=== PATIENT | female | born 1955 | race Caucasian/White ===

== ENCOUNTER 2016-05-30 15:00 | Inpatient (IN) | payer MEDICARE, OTHER ==
[~2016-05-30] VITALS: Ht 167.6 cm; Wt 75.5 kg
--- NOTE | ~2016-05-30 | ECHO ---
Transthoracic Echocardiography Report (TTE) Demographics Patient Name KODI GREEN Date of Study 05/31/2016 Patient Number [id number] Visit Number [id number] Date of 1955 Room Number G6204 Gender Female Number Age 61 year(s) Referring Silk Examiner Gold HARDENT, RDCS Physician Angelique Physician Interpreting Amilcar Bermudez MD Degreasing Solution Mixer Physician Supervising Ordering Doug Don MD, MD/MLP Physician Nurse Stress Systems Development Manager Conclusions Contractility Score Summary Normal Left Ventricular contractility was noted. Summary Normal LV/RV size and systolic function. The estimated left ventricular ejection fraction is 55-60%. Mild concentric left ventricular hypertrophy. Mild LA enlargement. Diastolic assessment reveals Grade II pseudonormal diastolic function . No significant valvular abnormalities. No evidence of pericardial effusion. Procedure Type of Study TTE procedure:2D Echocardiogram, M-Mode, Doppler , Color Doppler. Procedure Date Date: 05/31/2016 Start: 07:48 AM Study Location: Inpatient Portable Technical Quality: Adequate visualization Indications:Hypotension and Coronary artery disease. Appropriate Use Criteria: 9 Patient Status: Routine HR: 83 bpm BP: 90/50 mmHg Allergies - Codiene. - Penicillin. M-Mode/2D Measurements LV Diastolic Dimension: 4.34 cm LV Systolic Dimension: 2.81 cm LV Septum Diastolic: 0.89 cm LV PW Diastolic: 1.05 cm AO Root Dimension: 2.5 cm Cardiac Output: 6.31 l/min AV Cusp Separation: 1.7 cm RV Diastolic Dimension: 2.61 cm LA volume: 29 ml LVOT: 2 cm RV Base: 2.18 cm LVOT VTI: 24.2 cm RV Mid: 2.1 cm LV Stroke volume: 75.99 ml TAPSE: 2.5 cm TDI-S': 19 cm/s Doppler Measurements AV Peak Velocity: 1.65 m/s MV Peak E-Wave: 1.27 m/s AV Peak Gradient: 10.89 mmHg MV Peak A-Wave: 1.14 m/s AV Mean Gradient: 6 mmHg MV E/A Ratio: 1.11 LVOT Peak Velocity: 1.1 m/s MV P1/2t: 68 msec TR Gradient:22.09 mmHg PV Peak Velocity: 1.08 m/s Estimated RAP:3 mmHg PV Peak Gradient: 4.67 mmHg Estimated RVSP: 25 mmHg Estimated PASP: 25.09 mmHg E' Septal Velocity: 0.08 m/s A' Septal Velocity: 0.13 m/s E' Lateral Velocity: 0.16 m/s A' Lateral Velocity: 0.09 m/s Findings Left Ventricle Mild concentric left ventricular hypertrophy. Diastolic assessment reveals Grade II pseudonormal diastolic function . Abnormal septal motion. Right Ventricle Normal right ventricle structure and function. Left Atrium Mild LA enlargement. Right Atrium Normal right atrial size. IVC measures 1.8 cm with inspiratory collapse. Mitral Valve Trivial mitral regurgitation by color Doppler. Aortic Valve Normal aortic valve structure and function. Tricuspid Valve Trivial tricuspid regurgitation by color Doppler. Pulmonic Valve The pulmonic valve is not well visualized. Pericardial Effusion No evidence of pericardial effusion. Pleural Effusion No evidence of pleural effusion. Contractility Score LV regional wall motion:(0-Non visualized 1-Normal 2-Hypokinesis 3-Akinesis 4-Dyskinesis 5-Aneurysm) Signature dtt: MALDONADO CROW dtd: 05/31/16 0748 Physician Self Edit
--- NOTE | ~2016-05-30 | CON ---
PATIENT'S NAME: KODI GREEN [facility] AGE: 61 Y [address] ROOM: [place] [address] LOCATION: GICU ADMIT DATE: 05/30/2016 Consultation DISCHARGE DATE: FAMILY PHYSICIAN: KENYON BAUM ATTENDING PHYSICIAN: CAROLANN VAUGHN V DATE OF CONSULTATION: 06/01/2016 REFERRING PHYSICIAN: Andreia Tapia MD REASON FOR REFERRAL: Hypoxemia. HISTORY OF PRESENT ILLNESS: The patient is a 61-year-old woman with a host of chronic medical problems. She is dependent on opioids for chronic pain. She was brought to an outside facility with mental status changes, hypotension, and evidence of acute kidney injury. She was found to have an excessive number of [id number] pain patches on. Ultimately, she was transferred here. Over the course of the last 24 hours, she has had increasing O2 requirements and a chest radiograph demonstrating dense bilateral infiltrates. She is a cigarette smoker. PAST MEDICAL HISTORY: Please refer to the admission history and physical exam. FAMILY HISTORY: Unobtainable due to her lethargic state. SOCIAL HISTORY: Unobtainable due to her lethargic state. REVIEW OF SYSTEMS: Unobtainable due to her lethargic state. PHYSICAL EXAMINATION: GENERAL: Lethargic. She is on high flow oxygen. Otherwise unremarkable. LUNGS: With diffuse rhonchi and crackles. Diminished breath sounds in general. HEART: Distant. Regular. ABDOMEN: Nontender. EXTREMITIES: Trace of edema bilaterally. ASSESSMENT: Probable pneumonia secondary to aspiration. She may be developing diffuse alveolar damage and an acute respiratory distress syndrome picture as well. PATIENT'S NAME: KODI GREEN [facility] AGE: 61 Y [address] ROOM: [address] [address] LOCATION: GICU ADMIT DATE: 05/30/2016 Consultation DISCHARGE DATE: FAMILY PHYSICIAN: KENYON BAUM ATTENDING PHYSICIAN: CAROLANN VAUGHN V PLAN: Agree with current regimen with broad-spectrum antibiotic coverage, bronchodilators, and support with oxygen. If refractory hypoxemia occurs or hypercapnia, she will need to be intubated. We will follow along with you. MD RC BREWER/katherin /[id number] d: 06/02/16816 t: 06/03/16 1303, CONSULTATION REPORT
--- NOTE | ~2016-05-30 | DS ---
PATIENT'S NAME: KODI GREEN [facility] AGE: 61 Y [address] ROOM: [address] [place], [place] [address] LOCATION: GPCU ADMIT DATE: 05/30/2016 Discharge Summary DISCHARGE DATE: 06/05/2016 FAMILY PHYSICIAN: Vicki Mcneill ATTENDING PHYSICIAN: Lanre Camacho V PRINCIPAL DIAGNOSIS: 1. Acute hypoxic respiratory failure. 2. Community-acquired pneumonia. 3. Heart failure with preserved ejection fraction, acute exacerbation. 4. Coronary artery disease with multiple stents. 5. Chronic opioid dependence. 6. Degenerative joint disease. 7. Anxiety/depression. 8. Fibromyalgia. HOSPITAL COURSE: For details, please refer to H and P, but briefly, she is a 61-year-old lady with a past medical history of coronary artery disease; history of chronic pain, on generous doses of opioids; and fibromyalgia; was admitted to the ER in [place] and was transferred here subsequently for higher medical care. Initially, she was found to be hypotensive with altered mental status. It was discovered that she had been dealing with significant pain and used 8 Salonpas patches at the same time. She was initially volume resuscitated and started on vasopressors. We found out that she also had pneumonia and was diagnosed with septic shock. She was started on broad- spectrum antibiotics initially, but no organism was identified. She was deescalated and was taken off the vasopressors subsequently. Later during the course of the hospitalization, she developed pulmonary edema. There was some concern of ARDS, but she was diuresed and her pulmonary edema cleared over the next 2 days, making diagnosis of ARDS unlikely. On the day of the discharge, she had improved remarkably clinically as well as radiologically. She was discharged home with Levaquin for 3 more days. Of note, she has not seen her primary substance abuse counselor, Dr. Dodd, in many years. An echocardiography was done in the hospital which did show normal ejection fraction, but grade 2 diastolic dysfunction. She needs to follow up with Dr. Dodd for the management of her heart failure with preserved ejection fraction. She was also taking high dose of MS Contin 60 mg 3 times daily which was cut down to 30 mg twice daily in this hospitalization. We are going to send her home on a small dose of Lasix which is 20 mg and some potassium until she sees her primary care physician as well as Dr. Dodd. DISCHARGE MEDICATIONS: Today include, 1. Tylenol 1 g p.o. 3 times daily for pain p.r.n. 2. Aspirin 81 mg p.o. daily. PATIENT'S NAME: KODI GREEN [facility] AGE: 61 Y [address] ROOM: [place] [address] [facility] ADMIT DATE: 05/30/2016 Discharge Summary DISCHARGE DATE: 06/05/2016 FAMILY PHYSICIAN: Vicki Mcneill ATTENDING PHYSICIAN: Lanre Camacho V 3. Docusate 100 mg p.o. twice daily. 4. Lasix 20 mg p.o. every day for 7 days. 5. Morphine sulfate 30 mg p.o. 3 times daily. 6. Ranolazine 500 mg p.o. twice daily. 7. Ramipril 2.5 mg p.o. every morning. 8. Clonidine 0.1 mg p.o. twice daily p.r.n. 9. Mirtazapine 7.5 mg p.o. every night at bedtime for insomnia. 10. Progesterone 400 mg p.o. every night at bedtime. 11. Ondansetron 8 mg p.o. twice daily p.r.n. 12. Salonpas patch 1 patch every 8 hours for pain. 13. Nitroglycerin 0.4 mg sublingual for chest pain q.5 minutes. If chest pain does not resolve, contact the ER or call 911. 14. Levofloxacin 750 mg p.o. once daily three tablets. 15. Lasix 20 mg p.o. daily for 7 days. 16. KCl 10 mEq p.o. once daily 7 tablets. HEMODYNAMICS ON DISCHARGE: Stable. ACTIVITY: As tolerated. DIET: Low-sodium diet. I spent 40 minutes in discharge planning of this patient. MD PRAITMA AWAN/katherin /[id number] d: 06/06/16 0325 t: 06/07/16 1212, DISCHARGE SUMMARY
--- NOTE | ~2016-05-30 | HP ---
PATIENT'S NAME: KODI GREEN [facility] AGE: 61 Y [address] ROOM: [address] [place], [place] [address] LOCATION: GICU ADMIT DATE: 05/30/2016 History & Physical DISCHARGE DATE: FAMILY PHYSICIAN: PHYSICIAN, UNKNOWN ATTENDING PHYSICIAN: CAROLANN VAUGHN V DATE OF SERVICE: CHIEF COMPLAINT: Fell out of bed and was transferred for higher level of care. HISTORY OF PRESENT ILLNESS: The patient is a 61-year-old female with a past medical history most significant for coronary artery disease, status post multiple stents as well as chronic opioid dependency. The patient was brought to the ER in [place] earlier today. As reported to me by the provider there as well as by the patient and as extracted from the accompanying transfer chart, she has been weaker and has been having decreased oral intake. At the outside facility, the patient was hypotensive with pressures in the systolic 60s to 70s. She was also found to have acute kidney injury with a creatinine of 3.8. Upon further discussion with the patient, it turns out that she has been dealing with significant pain and has used 8 Salonpas patches at the same time, though we are not sure exactly what the active ingredient of those was. The provider in the outside facility suspect that was the methyl salicylate ones. Of note, the patient was currently being tapered off her MS Contin regimen and she is currently taking 60 mg of MS Contin 3 times a day. The patient also endorses left-sided chest pain radiation up to her neck and left arm though she assures me that this is not the kind of chest pain that she has when she has had a heart attack in the past. She denies any dyspnea, but does admit to an episode of palpitations. REVIEW OF SYSTEMS: All systems have been reviewed and are negative aside from pertinent positives mentioned above. PAST MEDICAL HISTORY: As extracted from the accompanying documentation as well as our records as well as some supplementation by the patient is: 1. Coronary artery disease, status post cardiac stenting in 2015 and 2013. 2. Chronic pain. 3. Tobaccoism. PATIENT'S NAME: KODI GREEN [facility] AGE: 61 Y [address] ROOM: [address] [place], [place] [address] LOCATION: GICU ADMIT DATE: 05/30/2016 History & Physical DISCHARGE DATE: FAMILY PHYSICIAN: PHYSICIAN, UNKNOWN ATTENDING PHYSICIAN: CAROLANN VAUGHN V 4. Anxiety. 5. Distant history of DVT. 6. Fibromyalgia. 7. GERD. 8. Hiatal hernia. 9. Chronic hypomagnesemia. 10. Degenerative disk disease. 11. Migraines. 12. Peptic ulcer disease. PAST SURGICAL HISTORY: Significant for appendectomy, bladder repair, cholecystectomy, hysterectomy, inguinal hernia repair, lumpectomy, and multiple spinal surgeries. CURRENT MEDICATIONS: 1. Progesterone. 2. Lorazepam 1 as needed. 3. Clonidine 0.1 twice a day as needed. 4. Aspirin 81. 5. Morphine sulfate 60 3 times a day. 6. Nitroglycerin as needed. SOCIAL HISTORY: Significant for longstanding and ongoing tobacco use currently at half-a-pack overall estimated to be around 40-pack years. The patient denies any other toxic habits. FAMILY HISTORY: Reviewed and is noncontributory due to known underlying medical conditions. PHYSICAL EXAMINATION: VITAL SIGNS: On dopamine administered to her en route, her heart rate was in the high 90s and blood pressure was 99/50; however, upon being taken off the dopamine while being transferred to the ICU bed, the blood pressure dropped into 65/40 with heart rate in the 80s, saturating 96% on 2 L nasal cannula, respirations are 10, and temperature is 98.5. GENERAL: Appears as a well-developed, well-nourished, middle-aged female, quite lethargic, but easily arousable, oriented, and appropriate. NEUROLOGIC: Gross neurological exam shows no focal deficits. EYES: Exam shows pupils approximately 3-mm and reactive. LYMPHATIC: Exam shows no cervical lymphadenopathy. ENDOCRINE: Exam shows no thyromegaly. ENT: Exam reveals dry mucous membranes. LUNGS: Exam reveals no crackles or rales bilaterally. GI: Abdomen is obese, soft, nondistended. Normoactive bowel sounds. PATIENT'S NAME: KODI GREEN [facility] AGE: 61 Y [address] ROOM: [address] [place] [id number] LOCATION: [facility] ADMIT DATE: 05/30/2016 History & Physical DISCHARGE DATE: FAMILY PHYSICIAN: PHYSICIAN, UNKNOWN ATTENDING PHYSICIAN: CAROLANN VAUGHN V : Exam reveals no costovertebral angle tenderness. VASCULAR: Exam reveals 2+ pedal pulses and slightly diminished capillary refill bilaterally. SKIN: Warm and dry. MUSCULOSKELETAL: Exam shows no muscle or joint abnormalities. PSYCHIATRIC: Exam reveals considerably depressed cognition and mood as well as affect, but the patient is appropriate. LABORATORY DATA: Studies from outside facility significant for a chest x-ray, which appears unremarkable, an EKG which shows a rather old anteroseptal infarct with no acute ST-segment or T-wave abnormalities, negative set of cardiac enzymes, a white count of 7, creatinine of 3.8, up from baseline of 9, potassium is 4.9. ASSESSMENT AND PLAN: This is a 61-year-old critically ill female admitted with: 1. Hypotension. This is likely related to dehydration as well as overmedication. We will continue to aggressively hydrate the patient and monitor her urine output. I will continue her on dopamine to support her circulation. At this point, there is no clear source for infection, but we will draw blood cultures, and treat appropriately. 2. History of coronary artery disease. We will cycle her cardiac enzymes and monitor her on telemetry. Given that she is hypotensive, we will get an echocardiogram to rule out a cardiac source for her hypotension. 3. Chronic opioid dependence. We will try and minimize the amount of opioids that she gets. 4. Acute kidney injury. This is again likely related to hypotension though we will get a urinalysis and renal ultrasound and track the patient's renal function with hydration and improved blood pressures. We will consider a Nephrology consult. 5. Deep venous thrombosis prophylaxis will be pharmacologic as the patient is a high-risk for developing a deep vein thrombosis. Additional management will depend on clinical course. Total critical care time dedicated to the care of this patient not counting any procedures is 60 minutes. MD DACIA BOND/katherin /[id number] D: 339 T: 905 HISTORY & PHYSICAL
[~2016-05-30 15:00] MED LIST: ALTACE2.5 MG PO; ASPIRIN LO-DOSE81 MG PO; ASPIRIN325 MG PO; ATARAX25 MG PO; EFFEXOR XR150 MG PO; LIPITOR40 MG PO; LIPITOR80 MG PO; LOPRESSOR25 MG PO; MS CONTIN60 MG PO; NEURONTIN800 MG PO; NICODERM (HABIT14 MG TOP; VASOTEC2.5 MG PO
[2016-05-30 17:22] LABS: BICARBONATE 14.3 mmol/L (18.0-23.0); LACTATE 0.7 mEq/L (0.50-1.60); PCO2 42 mmHg (35-45); PO2 88 mmHg (80-90)
[2016-05-30 17:25] LABS: BLOOD URINE 25 /UL (NEGATIVE); COLOR URINE YELLOW (YELLOW); GLUCOSE URINE NEGATIVE (NEGATIVE); KETONE URINE 5 mg/dL (NEGATIVE); LEUKOCYTES URINE 25 /UL (NEGATIVE); NITRITE URINE NEGATIVE (NEGATIVE); PROTEIN URINE 30 mg/dL (NEGATIVE); SPEC GRAVITY URINE 1.015 (1.003-1.035); TURBIDITY URINE CLEAR (CLEAR); UROBILINOGEN URINE NORMAL (NORMAL)
[2016-05-30 17:44] LABS: BARBITURATE NEGATIVE (NEGATIVE); COCAINE NEGATIVE (NEGATIVE)
[2016-05-30 17:45] LABS: AMPHETAMINE NEGATIVE (NEGATIVE); OPIATES POSITIVE (NEGATIVE)
[2016-05-30 17:46] LABS: AMORPHOUS URINE 2+ (NEGATIVE); BACTERIA URINE MODERATE (NEGATIVE); RBC URINE RARE #/HPF (NEGATIVE); WBC URINE 0-2 #/HPF (NEGATIVE)
[2016-05-30 18:01] LABS: HEMATOCRIT 34.7 % (33.0-46.0); MCH 32.8 pg (27.0-34.0); MCHC 31.7 gm/dL (32.0-36.5); MCV 103.6 fl (83.0-98.0); MPV 11.7 fl (9.4-12.4); PLATELET COUNT 100 K/uL (150-450); RBC 3.35 M/uL (3.50-5.50); RDW-CV 13.6 % (11.9-14.6); WBC 5.4 K/uL (4.0-11.0)
[2016-05-30 18:11] LABS: PROTIME 10.7 SECONDS (9.6-11.1); PTT 24 SECONDS (25-32)
[2016-05-30 18:23] LABS: ALBUMIN 3.1 gm/dL (3.5-5.0); ALK PHOS 91 IU/L (33-138); ALT 20 IU/L (12-78); AST 26 IU/L (10-40); BLOOD UREA NITROGEN 50 mg/dL (6-24); CHLORIDE 105 mMol/L (96-110); CPK 350 IU/L (21-215); CREATININE 2.8 mg/dL (0.5-1.1); ESTIMATED GFR (MDRD EQUATION) 17; MAGNESIUM 1.8 mg/dL (1.3-2.6); PHOSPHORUS 4.8 mg/dL (2.5-4.9); POTASSIUM 4.1 mMol/L (3.7-5.1); SODIUM 136 mMol/L (135-145); TOTAL BILIRUBIN 0.9 mg/dL (0.0-1.5); TOTAL PROTEIN 6.2 g/dL (6.0-8.4)
[2016-05-30 18:29] LABS: ABSOLUTE NEUTROPHIL CT (ANC) 4.1 K/uL (1.8-7.8); BANDED NEUTROPHIL # 3.6 K/uL (0.0-0.1); BANDED NEUTROPHILS % 66 %; LYMPHOCYTE # 0.8 K/uL (0.8-4.0); LYMPHOCYTE % 14 %; MONOCYTE # 0.5 K/uL (0.0-1.0); SEGMENTED NEUTROPHIL # 0.5 K/uL (1.8-7.8); SEGMENTED NEUTROPHIL % 10 %
[2016-05-30 18:30] LABS: ANION GAP 19.1 (10.0-19.0); CALCIUM 7.3 mg/dL (8.5-10.5); CO2 16 mMol/L (22-32)
[2016-05-30] MEDS ORDERED: RANEXA ER500 MG PO (18:49)
[2016-05-30] MEDS ORDERED: CLONIDINE HCL0.1 MG PO (18:50)
[2016-05-30] MEDS ORDERED: PROGESTERONE200 MG PO (18:52)
[2016-05-30] MEDS ORDERED: ONDANSETRON ODT8 MG PO (18:52)
[2016-05-30] MEDS ORDERED: MIRTAZAPINE7.5 MG PO (18:52)
[2016-05-30] MEDS ORDERED: SALONPAS PATCH1 EAC1 TRANS (18:53)
[2016-05-30] MEDS ORDERED: NITROSTAT0.4 MG SL (18:54)
[2016-05-30 19:12] LABS: BICARBONATE 14.5 mmol/L (18.0-23.0); PCO2 37 mmHg (35-45); PO2 113 mmHg (80-90)
[2016-05-31 00:06] LABS: BICARBONATE 15.1 mmol/L (18.0-23.0); PCO2 36 mmHg (35-45)
[2016-05-31 00:07] LABS: PO2 88 mmHg (80-90)
[2016-05-31 05:26] LABS: ALBUMIN 2.6 gm/dL (3.5-5.0); CREATININE 1.7 mg/dL (0.5-1.1); POTASSIUM 3.7 mMol/L (3.7-5.1)
[2016-05-31 05:28] LABS: ANION GAP 15.7 (10.0-19.0); CALCIUM 7.3 mg/dL (8.5-10.5); TOTAL BILIRUBIN 0.6 mg/dL (0.0-1.5)
--- NOTE | 2016-05-31 05:51 | NUR ---
Significant Event: NARCAN GIVEN X1 PER MD ORDER, PATIENT MORE ALERT AND ABLE TO ANSWER ORIENTATION QUESTIONS. HAS SOME CONFUSION BUT REORIENTS EASILY. TEMP MAX 100.8, STARTED ON LEVAQUIN AND ZYVOX IN ADDITION TO ZOSYN. NO TYLENOL PRN GIVEN. CONTINUES ON LEVOPHED GTT TITRATING FOR MAP GOAL >65. CONTINUES ON BIPAP 10/5 30% FIO2. OCCASSIONAL SPONTANEOUS NONPRODUCTIVE COUGH. MARTEL WITH GOOD UOP. INCONTINENT OF STOOL X2. PIV X2. Follow up: ECHO AND ULTRASOUND TODAY.
--- NOTE | 2016-05-31 17:52 | NUR ---
SIGNIFICANT EVENT: PATIENT ALERT, ORIENTED X3. OPENS EYES SPONTANEOUSLY AND TO VOICE. PUPILS EQUAL AND REACTIVE. PATIENT DENIES ANY NUMBNESS OR TINGLING. PATIENT MOVES ALL 4 EXTREMITIES SPONTANEOUSLY AND TO COMMANDS. GENERALIZED WEAKNESS, EQUAL STRENGTH THROUGHOUT. PATIENT HAS BEEN IN SINUS RHYTHM. HR 70-90S. PULSES PALPABLE THROUGHOUT. PATIENT COMPLAINED OF CHEST PAIN X1 TODAY, DR EARL WAS NOTIFIED. STAT EKG WAS OBTAINED. NO CHANGES FROM CHEST PAIN. PATIENT GETS ANXIOUS AT TIMES. CURRENTLY DENIES ANY CHEST PAIN. MORPHINE SWITCHBOARD OPERATOR STARTED 2 MG CONTINUOUS, 1 MG EVERY 20 MINS AVAILABLE. LEVOPHED WEANED TO OFF. SBP>90, MAP>65. AFEBRILE. PATIENT ON 4L NASAL CANNULA, TO KEEP SATS >90%. SPONT COUGH. NON PRODUCTIVE. BOWEL SOUNDS PRESENT, 2 BM. ABDOMEN IS DISTENDED AND SLIGHTLY FIRM, MD AWARE. CT SCAN COMPLETED TODAY AND RENAL ULTRA SOUND. MARTEL CONTINUED, ADEQUATE URINE OUTPUT. NO NEW SKIN ISSUES NOTED. R) MIDLINE STARTED THIS SHIFT, NO COMPLICATIONS. FOLLOW UP: CONTINUE TO MONITOR
[2016-05-31 18:05] LABS: ANION GAP 14.5 (10.0-19.0); CALCIUM 7.6 mg/dL (8.5-10.5); CREATININE 1.2 mg/dL (0.5-1.1); MAGNESIUM 2.1 mg/dL (1.3-2.6); POTASSIUM 3.5 mMol/L (3.7-5.1)
[2016-06-01 05:29] LABS: HEMATOCRIT 31.8 % (33.0-46.0); HEMOGLOBIN 10.3 g/dL (10.0-15.0); MCH 32.5 pg (27.0-34.0); MCHC 32.4 gm/dL (32.0-36.5); MCV 100.3 fl (83.0-98.0); PLATELET COUNT 95 K/uL (150-450); RBC 3.17 M/uL (3.50-5.50); RDW-CV 13.4 % (11.9-14.6); WBC 9.7 K/uL (4.0-11.0)
[2016-06-01 05:48] LABS: ALBUMIN 2.1 gm/dL (3.5-5.0); MAGNESIUM 2.1 mg/dL (1.3-2.6); POTASSIUM 3.7 mMol/L (3.7-5.1)
[2016-06-01 05:50] LABS: ANION GAP 14.7 (10.0-19.0); PHOSPHORUS 1.6 mg/dL (2.5-4.9)
[2016-06-01 06:07] LABS: ABSOLUTE NEUTROPHIL CT (ANC) 7.9 K/uL (1.8-7.8); BANDED NEUTROPHIL # 4.3 K/uL (0.0-0.1); BANDED NEUTROPHILS % 44 %; LYMPHOCYTE # 1.4 K/uL (0.8-4.0); LYMPHOCYTE % 14 %; MONOCYTE # 0.5 K/uL (0.0-1.0); SEGMENTED NEUTROPHIL # 3.6 K/uL (1.8-7.8); SEGMENTED NEUTROPHIL % 37 %
--- NOTE | 2016-06-01 06:42 | NUR ---
Significant Event: Patient is alert and oriented x 3. Slightly forgetful. VSS on Bipap. HRs in the 70s-80s. SBPs in the mid 90s-120s. To keep SBPs greater than 90 and MAPs greater than 65. Max temp of 100.6. Tylenol given x 1. On bedrest. Reposition q2 hours. Myles intact. Good UOP. Incontinent of stool at times. BM x 2 this shift. Right upper midline IV with Sodium Bicarb running at 125 ml/hr. Receiving intermittent IV antibiotics. On Morphine METHODS ANALYST DATA PROCESSING with settings at 2 mg/hr continuous and 1 mg demand dose with 20 minute lockout. Follow up:
[2016-06-01 10:56] LABS: BICARBONATE 19.5 mmol/L (18.0-23.0); PCO2 33 mmHg (35-45); PO2 73 mmHg (80-90)
--- NOTE | 2016-06-01 15:45 | NUR ---
Introduced self and role of care management to patient and her . They live in [place]. Patient hopes to go home when ready for discharge. Says their [id number] said she would come and stay with her when she is ready to go home. Did talk to them briefly about skilled care at [place]. Will see how she does. Will follow.
[2016-06-01 16:39] LABS: ANION GAP 18.3 (10.0-19.0); CALCIUM 8.5 mg/dL (8.5-10.5)
[2016-06-01 16:46] LABS: POTASSIUM 4.3 mMol/L (3.7-5.1)
--- NOTE | 2016-06-01 17:00 | NUR ---
Significant Event: Patient is A&O X3, forgetful at times, follows all commands, pupils are equal and reactive. Patient denies any numbness and tingling. SBP have been one teens-140's, MAP's 70's-low 100's, HR 70's-90's. Patient is on 60% Hi-Flow NC with 02 sats mid to upper 90's. Lung sounds are coarse. RR have been 20's-low 30's. Patient has a Morphine PROFESSOR OF SOCIAL WORK running at 2mg continuious and 1mg demand with a 20min lockout. Myles had 4560ml out, gave 20mg Lasix IVP X2. Follow up:
[2016-06-02 01:55] LABS: ANION GAP 15.2 (10.0-19.0); CALCIUM 8.6 mg/dL (8.5-10.5); CREATININE 1.1 mg/dL (0.5-1.1)
[2016-06-02 01:56] LABS: POTASSIUM 3.2 mMol/L (3.7-5.1)
--- NOTE | 2016-06-02 05:35 | NUR ---
Significant Event: Pt is alert and orined x3. Pupils are equal and reactive. Moves all extremities spontaneously and to command. Pt is on highflow nasal canula at 50%. Pt did have complaints of severe ABD pain this shift. Cardiac labs were negative, EKG was normal, and CT of ABD/Pelvis showed some air in the intestines. Pt did wake up confused this morning, and felt short of breath again. Myles cath in place with adiquate urine output. No BM this shift. Midline IV in place. Follow up: Ween O2 as tolerated.
[2016-06-02 07:00] LABS: BASOPHIL % 0.2 %; HEMATOCRIT 31.8 % (33.0-46.0); HEMOGLOBIN 10.8 g/dL (10.0-15.0); IMMATURE GRANULOCYTE # 0.5 K/uL (0.0-0.3); IMMATURE GRANULOCYTE % 3.3 %; LYMPHOCYTE # 1.2 K/uL (0.8-4.0); LYMPHOCYTE % 8.6 %; MCH 32.4 pg (27.0-34.0); MCV 95.5 fl (83.0-98.0); MONOCYTE # 0.8 K/uL (0.0-1.0); MONOCYTE % 5.3 %; MPV 10.8 fl (9.4-12.4); NEUTROPHIL % 82.6 %; NRBC % 0 /100WBC (0-0.00); RBC 3.33 M/uL (3.50-5.50); RDW-CV 12.9 % (11.9-14.6); WBC 14.5 K/uL (4.0-11.0)
[2016-06-02 07:02] LABS: PLATELET COUNT 172 K/uL (150-450)
[2016-06-02 07:17] LABS: ANION GAP 14.6 (10.0-19.0); BLOOD UREA NITROGEN 26 mg/dL (6-24); CALCIUM 8.5 mg/dL (8.5-10.5); CHLORIDE 111 mMol/L (96-110); CO2 22 mMol/L (22-32); CPK 78 IU/L (21-215); CREATININE 1.1 mg/dL (0.5-1.1); ESTIMATED GFR (MDRD EQUATION) 50; POTASSIUM 3.6 mMol/L (3.7-5.1); SODIUM 144 mMol/L (135-145)
--- NOTE | 2016-06-02 17:18 | NUR ---
Significant Event: Patient is A&O X3, forgetful at times, follows all commands. Pupils are equal and reactive, denies numbness and tingling. SBP have been 130's-140's, MAP's 80's-low 100's, HR 70's-80's. Patient is on 40% Hi-flow nasal canula, o2 sats have been low to mid 90's. Lungs sounds are coarse with crackles. RR have been mid 20's-30's. Myles had 1855ml out, gave Lasix 20mg IVP X1. Follow up:
[2016-06-03 05:24] LABS: HEMATOCRIT 32.6 % (33.0-46.0); HEMOGLOBIN 11.3 g/dL (10.0-15.0); MCH 32.6 pg (27.0-34.0); MCHC 34.7 gm/dL (32.0-36.5); MCV 93.9 fl (83.0-98.0); MPV 10.2 fl (9.4-12.4); RBC 3.47 M/uL (3.50-5.50); RDW-CV 13.2 % (11.9-14.6); WBC 15.8 K/uL (4.0-11.0)
[2016-06-03 05:30] LABS: PLATELET COUNT 251 K/uL (150-450)
[2016-06-03 05:43] LABS: CALCIUM 8.6 mg/dL (8.5-10.5)
[2016-06-03 05:56] LABS: BANDED NEUTROPHIL # 3.8 K/uL (0.0-0.1); BANDED NEUTROPHILS % 24 %; LYMPHOCYTE # 2.7 K/uL (0.8-4.0); LYMPHOCYTE % 17 %; MONOCYTE # 0.3 K/uL (0.0-1.0); SEGMENTED NEUTROPHIL # 8.2 K/uL (1.8-7.8); SEGMENTED NEUTROPHIL % 52 %
--- NOTE | 2016-06-03 11:22 | NUR ---
A - PT SCREENED D/T LOS. HT: 66" WT: 173# (06/03), ADMIT WT 194# - DOWN 21# (10.8%). DID RECEIVE LASIX ON 06/01 AND 06/02. LABS: K+ 3.0, GLU 126, BUN/CR 28/1.0, ALB 2.1, PHOS 1.6, CRP 31.9, WBC 15.8 MEDS: PROTONIX, SEROQUEL, LEVAQUIN, SOLUMEDROL, ZOSYN, NAUSEA DIET: CARDIAC. INTAKE: MOSTLY BITES NEEDS: [id number] KCAL (20-25 KCAL/KG), 78-94 G PRO (1-1.2 G/KG), 2340 ML FLUID (30 ML/KG) D - INADEQUATE NUTRIENT INTAKE R/T DECREASED APPETITE AEB INTAKE RECORD. I - GOAL FOR INTAKE > 50% BY NEXT ASSESSMENT. WILL ADD ENSURE TID TO INC NUTRIENT INTAKE. M/E - WILL MONITOR INTAKE F/U IN 4-5 DAYS.
--- NOTE | 2016-06-03 12:35 | NUR ---
Introduced self and role of care management to pt. Pt lives in [place] with her . She did get up and walked today for the first time and did ok but did desat. She states she is hoping for home and will be there and her daughter will be over to help and another one will come on the weekends. I did mention swingbed in [place] if needed and also [facility]hc. She states she will see how she does over the weekend and go from there. I explained I will touch base on Monday and see how she is doing. Will continue to follow and assist as needed.
--- NOTE | 2016-06-03 17:05 | NUR ---
Significant Event: A/O x3, cooperative with cares; drowsy at times et has difficulty keeping eyes open while talking. VSS, SBPs 150-160s, HRs 80s, oxygen at 2 liters. C/O back pain; consistently rating 6/10, recieved scheduled medications. Recieved 40 of potassium chloride both oral et IV for a level of 3.0. IV abx changed et initial dose of rocephin given. PT/OT consulted et worked with patient; ambulate in almaguer with assist of 1 et walker; up to chair. Myles patent with 1300 ml of light yellow urine out this shift. Family at bedside. Follow up:
--- NOTE | 2016-06-04 04:31 | NUR ---
Pt a/o throughout shift. did not get oob all shift. vss on 1L, afebrile. was able to titrate down to ra this am. has periods of apnea. Ambien given at hs. con't to complain of "back pain" but falls back asleep quickly. SL mildine to RUA. mccain in place with 950 out. Plan: Con't current plan of care
[2016-06-04 06:00] LABS: HEMATOCRIT 33.1 % (33.0-46.0); HEMOGLOBIN 11.3 g/dL (10.0-15.0); MCH 32.5 pg (27.0-34.0); MCHC 34.1 gm/dL (32.0-36.5); MCV 95.1 fl (83.0-98.0); MPV 10.3 fl (9.4-12.4); PLATELET COUNT 293 K/uL (150-450); RBC 3.48 M/uL (3.50-5.50); RDW-CV 13.7 % (11.9-14.6); WBC 14.3 K/uL (4.0-11.0)
[2016-06-04 06:13] LABS: ANION GAP 15.1 (10.0-19.0); BLOOD UREA NITROGEN 24 mg/dL (6-24); CALCIUM 8.4 mg/dL (8.5-10.5); CHLORIDE 111 mMol/L (96-110); CO2 20 mMol/L (22-32); CREATININE 0.9 mg/dL (0.5-1.1); ESTIMATED GFR (MDRD EQUATION) > 60; POTASSIUM 3.1 mMol/L (3.7-5.1); SODIUM 143 mMol/L (135-145)
[2016-06-04 06:47] LABS: ABSOLUTE NEUTROPHIL CT (ANC) 9.3 K/uL (1.8-7.8); BANDED NEUTROPHIL # 2.3 K/uL (0.0-0.1); BANDED NEUTROPHILS % 16 %; LYMPHOCYTE # 3.7 K/uL (0.8-4.0); LYMPHOCYTE % 26 %; SEGMENTED NEUTROPHIL % 49 %
--- NOTE | 2016-06-04 16:53 | NUR ---
Significant Event: A/O x3, cooperative with cares. VSS, SBPs 150-160s, HRs 80-90s, on room air. C/O back pain, consistently rating it 6-7/10; recieved scheduled pain medications. Shar dc'd; voided several times since. 2 gm of IV magnesium sulfate for a level of 1.8. Potassium level 3.1 today; given multiple doses of 40 mEq of oral potassium today. Recieved oral lasix today. Up with assist of 1 et walker; up to chair et bathroom. Ambualte almaguer with physical therapy. Follow up: possible d/c tomorrow
[2016-06-05 03:50] LABS: MCH 31.7 pg (27.0-34.0); MPV 9.8 fl (9.4-12.4); RDW-CV 14.3 % (11.9-14.6)
[2016-06-05 03:51] LABS: HEMATOCRIT 40.6 % (33.0-46.0); PLATELET COUNT 392 K/uL (150-450); WBC 16.3 K/uL (4.0-11.0)
[2016-06-05 04:06] LABS: ANION GAP 14.9 (10.0-19.0); CALCIUM 8.6 mg/dL (8.5-10.5); POTASSIUM 3.9 mMol/L (3.7-5.1)
[2016-06-05 04:13] LABS: ABSOLUTE NEUTROPHIL CT (ANC) 6.2 K/uL (1.8-7.8); BANDED NEUTROPHIL # 1.1 K/uL (0.0-0.1); BANDED NEUTROPHILS % 7 %; LYMPHOCYTE # 8.2 K/uL (0.8-4.0); LYMPHOCYTE % 50 %; MONOCYTE # 0.5 K/uL (0.0-1.0); SEGMENTED NEUTROPHIL # 5.1 K/uL (1.8-7.8); SEGMENTED NEUTROPHIL % 31 %
--- NOTE | 2016-06-05 04:39 | NUR ---
Pt a/o x4. vss on ra, afebrile. slept all night again. prn anaien given at hs. sba. gave scheduled pain meds at hs. Plan:dc today?
[2016-06-05] MEDS ORDERED: ACETAMINOPHEN500 M1 PO (11:34)
[2016-06-05] MEDS ORDERED: COLACE100 MG PO (11:41)
[2016-06-05] MEDS ORDERED: LASIX20 MG PO (11:42)
[2016-06-05] MEDS ORDERED: AMBIEN5 MG PO (12:00)
[2016-06-05] MEDS ORDERED: LEVAQUIN750 MG PO (12:03)
[2016-06-05] MEDS ORDERED: K-TAB ER20 MEQ PO (12:04)
[2016-06-05] MEDS ORDERED: SYMBICORT 16010.2 GM INH (12:06)
[2016-06-05] MEDS ORDERED: PROVENTIL OR V6.7 GM INH (12:07)
--- NOTE | 2016-06-05 13:59 | NUR ---
Significant Event: A/O x3, cooperative with cares. VSS, SBPs 140-150s, HRs 90s, on room air. Back pain consistently 6-7/10; recieving scheduled medications. Up with SBA/assist of 1 to bathroom et chair; ambulate almaguer with physical therapy. Dismissal instructions given to patient et family; verbalized understanding. Pharmacist visited with patient et family about new medications et about what to do with MS contin et needs to be done with it; verbalized understanding. Dismissed to front lobby per w/c accompanied registered nursing professor Follow up:
== END 2016-06-05 13:30 | disposition disaster alternative care site (69) | DRG 871 ==
LOC: GICU 15:35 → GPCU 06-03 07:35
PROVIDERS: Internal Medicine; ADMIT Internal Medicine
DX: A41.9 Sepsis, unspecified organism (principal); J18.9 Pneumonia, unspecified organism; J96.01 Acute respiratory failure with hypoxia; J84.09 Other alveolar and parieto-alveolar conditions; N17.9 Acute kidney failure, unspecified; I50.30 Unspecified diastolic (congestive) heart failure; F11.20 Opioid dependence, uncomplicated; E86.0 Dehydration; E83.42 Hypomagnesemia; F41.9 Anxiety disorder, unspecified; G43.909 Migraine, unspecified, not intractable, without status migrainosus; G89.29 Other chronic pain; I25.10 Atherosclerotic heart disease of native coronary artery without angina pectoris; M79.7 Fibromyalgia; Z90.710 Acquired absence of both cervix and uterus; I25.2 Old myocardial infarction; F17.200 Nicotine dependence, unspecified, uncomplicated
CPT/HCPCS: C1751; C9113; G0480; J0696; J1170; J1265; J1650; J1940; J1956; J2020; J2060; J2270; J2310; J2543; J2930; J3475; J3480; J7030; J7040; J7050; J7060

== ENCOUNTER 2016-06-08 14:00 | Inpatient (IN) | payer MEDICARE, OTHER ==
[~2016-06-08] VITALS: Ht 172.7 cm; Wt 79.8 kg
--- NOTE | ~2016-06-08 | OR ---
PATIENT'S NAME: KODI GREEN [facility] [place] AGE: 61 Y [address] ROOM: [address] [address] LOCATION: GICU ADMIT DATE: 06/08/2016 OR/Procedure Report DISCHARGE DATE: FAMILY PHYSICIAN: PHYSICIAN, UNKNOWN ATTENDING PHYSICIAN: CRUZITO ESPITIA SURGEON: Ivy Villa DO DRESS FITTER: DATE OF PROCEDURE: 06/08/2016 PREOPERATIVE DIAGNOSIS: Sepsis, need for central venous access secondary to failed peripheral attempts and inotropic support. POSTOPERATIVE DIAGNOSIS: Sepsis, need for central venous access secondary to failed peripheral attempts and inotropic support. PROCEDURE: Insertion of a left triple-lumen high-flow infusion catheter via the left subclavian vein. BRIEF HISTORY: Ms. Green is a 61-year-old female. Informed consent has been obtained. The left infraclavicular space was sterilely prepped and draped. Lidocaine 1% was used to infiltrate the area and the patient was placed into a Trendelenburg position. Subclavian vein was accessed without difficulty and a guidewire fed without resistance. Stab incision was made at the base of the needle and a needle was withdrawn. Soft tissue dilators x2 were placed over the guidewire and withdrawn, and then the triple-lumen catheter was placed over the guidewire and the guidewire was withdrawn. Each lumen aspirated easily for dark venous blood and was flushed with sterile saline. Catheter secured into position with a 2-0 silk and a sterile dressing was applied. The patient tolerated the procedure well. IVY VILLA DO MCB/modl /[id number] d: 06/09/16 1806 t: 06/13/16 1435, OPERATIVE SUMMARY
--- NOTE | ~2016-06-08 | CON ---
PATIENT'S NAME: KODI GREEN [facility] AGE: 61 Y [address] ROOM: [place] [address] LOCATION: GICU ADMIT DATE: 06/08/2016 Consultation DISCHARGE DATE: FAMILY PHYSICIAN: PHYSICIAN, UNKNOWN ATTENDING PHYSICIAN: CRUZITO ESPITIA DATE OF CONSULTATION: 06/08/2016 REASON FOR CONSULTATION: Elevated BUN and creatinine. HISTORY OF PRESENT ILLNESS: The patient is a 61-year-old white female who was brought in the emergency room because of obtundation. Her systolic blood pressure was in 60s. She was given IV fluid bolus and started on pressors. Her routine chemistry shows that her creatinine went up from baseline of 1.0 to 2.0. She has a primary diagnosis of sepsis with elevated white count and hypotension. Outpatient medication does include ramipril. The patient did have a similar episode earlier this month when her creatinine went up to 2.8, and she also had sepsis- like picture at that time. The patient did have renal ultrasound last time and typically kidneys were okay. There was no evidence of hydronephrosis. She has a Ph level of 7.19. I have been asked to see her because of her elevated creatinine. She is making urine. REVIEW OF SYSTEMS: The patient is quite obtunded and I was not able to obtain any meaningful review of systems from her. PAST MEDICAL HISTORY: History of sepsis, coronary artery disease, chronic pain syndrome, tobaccoism, anxiety disorder, fibromyalgia, remote history of deep vein thrombosis, gastroesophageal reflux disease, degenerative joint disease, migraine headache, peptic ulcer disease. PAST SURGICAL HISTORY: Splenectomy, bladder repair, cholecystectomy, hysterectomy, inguinal hernia repair, lumpectomy, multiple spinal surgeries. ALLERGIES: NO KNOWN DRUG ALLERGIES. MEDICATIONS: 1. Vitamin D 50,000 international units a day. 2. Zosyn 3.375 g IV q.6 hours. 3. Saccharomyces boulardii 250 mg twice a day. PATIENT'S NAME: KODI GREEN [facility] AGE: 61 Y [address] ROOM: [address] [address] LOCATION: GICU ADMIT DATE: 06/08/2016 Consultation DISCHARGE DATE: FAMILY PHYSICIAN: PHYSICIAN, UNKNOWN ATTENDING PHYSICIAN: KHALID,EAST A 4. Morphine sulfate 60 mg twice a day. 5. Linezolid 300 mg twice a day. 6. Atorvastatin 80 mg every day. 7. Ranolazine 500 mg twice a day. 8. Nicotine 21 mg a day. 9. Albuterol 2 puffs inhaler q.6 hours. 10. Mirtazapine at bedtime. 11. Zofran sublingual p.r.n. 12. Nitroglycerin sublingual p.r.n. 13. Acetaminophen p.r.n. 14. Magnesium sulfate x1. SOCIAL HISTORY: She lives at home with her . She has 40 pack year history of smoking. Currently smokes half a pack per day. FAMILY HISTORY: Noncontributory. PHYSICAL EXAMINATION: GENERAL: A 61-year-old, white, lying in the hospital bed. She is quite drowsy, but responds to painful stimulus. VITAL SIGNS: Temperature is 98; pulse 75; systolic blood pressure 110, diastolic is 70; respiratory rate of 18. HEENT: Head is normocephalic. Pupils are round and equal. Normal eyelid and pale conjunctivae. Oral cavity clear. Dry mucosa. NECK: Trachea is central. No thyromegaly. Flat jugular veins. No bruits. HEART: Sounds are audible in all the areas without any gallop or murmur. There is no peripheral rub. Pulses regular in rhythm. LUNGS: Bilaterally clear to auscultate. No intercostal retraction. ABDOMEN: Soft, nontender. Could not palpate the liver or spleen. EXTREMITIES: She has no clubbing or cyanosis. SKIN: No sign of vasculitis. LYMPHATICS: I did not examine lymphatics HIGHER PSYCHIATRIC FUNCTIONS: Could not be tested. LABORATORY DATA: WBC 19.5, hemoglobin 11.1, hematocrit 35.8, platelet count of 411. Glucose 194, BUN 32, creatinine 2.0, sodium 142, potassium 4.0, chloride 114, bicarb 15, calcium 7.5, albumin of 2.9. Urinalysis shows specific gravity of 1.015, protein of 15, wbc 0-2, rbc negative. CPK is 40. ASSESSMENT: 1. Acute kidney injury, most likely this is prerenal in etiology. The patient had very significant drop in her systolic blood pressure to 60s PATIENT'S NAME: KODI GREEN D[facility] AGE: 61 Y [address] ROOM: [place] [address] LOCATION: [facility] ADMIT DATE: 06/08/2016 Consultation DISCHARGE DATE: FAMILY PHYSICIAN: PHYSICIAN, UNKNOWN ATTENDING PHYSICIAN: CRUZITO ESPITIA and she has also been on ramipril. 2. Acidemia due to both respiratory and metabolic acidosis. Respiratory acidosis probably because of obtundation and shallow breathing and the metabolic component is probably because of acute kidney injury. 3. Tobaccoism. 4. Hypotension. 5. Sepsis. 6. Elevated white count. 7. Anxiety disorder. 8. Coronary artery disease. TREATMENT PLAN: I agree with IV fluid, but I will give IV bicarbonate-containing fluid at 125 mL an hour. We will also hold ramipril. Aim systolic blood pressure for at leas 100. We will follow her renal function closely while she is in the hospital. I would like to thank Dr. Dixon for allowing me to participate in this patient's care. M MD NATALIE BOBBY/katherin /[id number] d: 06/09/16 0434 t: 06/09/16 0913, CONSULTATION REPORT
--- NOTE | ~2016-06-08 | DS ---
PATIENT'S NAME: KODI GREEN [facility] AGE: 61 Y [address] ROOM: [place] [address] LOCATION: GPCU ADMIT DATE: 06/08/2016 Discharge Summary DISCHARGE DATE: 06/12/2016 FAMILY PHYSICIAN: Physician, Unknown ATTENDING PHYSICIAN: Barbie Brice PRINCIPAL DISCHARGE DIAGNOSIS: Systemic inflammatory response syndrome with hypovolemic shock (present on admission). SECONDARY DIAGNOSES: 1. Acute kidney injury. 2. Metabolic acidosis. 3. Mild respiratory acidosis. 4. Anemia, acute with negative Hemoccult. 5. Macrocytosis, with a vitamin B12 level of 339. 6. Coronary artery disease. 7. Chronic opioid dependence. 8. Hypokalemia, chronic. 9. Fibromyalgia. 10. Anxiety. 11. Dental caries. 12. Insomnia. CONSULTATIONS: 1. Dr. Ajith Gupta for central line access with insertion of left triple-lumen high-flow infusion catheter via the left subclavian vein on 06/09/2016. 2. Dr. Bocanegra of Nephrology on 06/08/2016 for elevated BUN and creatinine. 3. Dr. Dodd of Cardiology, the patient known to him as an outpatient. She missed her outpatient appointment with him because of admission to the hospital. PROCEDURES: Central line as above. Echocardiogram on 06/08/2016: Brief summary of results; estimated left ventricular ejection fraction 60%, mild concentric left ventricular hypertrophy, grade 1 diastolic dysfunction, mildly dilated right ventricle. BRIEF HISTORY: Ms. Green is a 61-year-old female who had recently been admitted to [facility] with community-acquired pneumonia with heart failure exacerbation and sepsis. She was having difficulty recovering with poor p.o. intake. She had continued to take her Lasix. She presented to her Cardiology office with a systolic blood pressure in the 60s to 70s. She went to emergency room and received 3 L of normal saline with mild improvement in her blood pressure and was started on vasopressor and transferred to ICU for further management. PATIENT'S NAME: KODI GREEN [facility] AGE: 61 Y [address] ROOM: [place] [address] LOCATION: GPCU ADMIT DATE: 06/08/2016 Discharge Summary DISCHARGE DATE: 06/12/2016 FAMILY PHYSICIAN: Physician, Unknown ATTENDING PHYSICIAN: Barbie Brice She was alert and awake on initial evaluation, complaining of mild dizziness, no headache and no significant findings on review of systems. She was started on Levophed that was able to be weaned off within the first 24 hours. She was placed on sepsis protocol and she was treated with linezolid IV 600 b.i.d. and Zosyn 3.375 gm every 8 hours IV. Throughout her stay, she continued to progress each day. She had a low-grade temperature yesterday with mild sweating, it has not recurred. Dr. Dodd was notified of her admission. Her echocardiogram on this admission was somewhat improved from grade 2 to grade 1 diastolic dysfunction. She had one episode of chest pain, responded well to oxygen, morphine, and she chewed 325 mg of aspirin and resolved within an hour, has not recurred. Troponins were negative. She did have acute kidney injury on admission and was seen and evaluated by Dr. Bocanegra for creatinine of 2.0, significantly elevated from her baseline from past hospitalization. She also has acidemia. She was started on a bicarb drip and this was discontinued after 24 hours. She remained on hydration, D5 half-normal saline with 40 mEq of KCl per liter at 50 mL/h and has persistently had mild hypokalemia which has been treated orally and she had mild hypernatremia and her sodium persists at 147. CURRENT LABORATORY DATA: Includes basic metabolic panel that showed her sodium persists at 147, potassium 3.6, chloride 115, CO2 of 24, BUN 4, creatinine 0.8, eGFR is greater than 60, her glucose is 103. White blood cell count 9.3, down from 19.5 on admission. Hemoglobin is 8.6, this was 13 on admission, the following day it was 11.1. It is unclear, the 13 may have been artificially elevated due to her severe fluid contracted state on admission; however, her hemoglobin has marched down slightly and is now 8.6. We had one stool for occult blood which was negative. She had a couple of loose stools the day after admission, but this has stopped. Stool culture was negative for bacteria, but positive for moderate growth of Anna albicans. We will continue her probiotic for this. She did have macrocytosis with MCV of 101.5. Her B12 is at the lower limit of normal but not significantly low, 339; she may benefit from oral supplementation of B12, otherwise, macrocytosis should be followed for other causes. Blood cultures were negative. There is no other apparent source of infection. She does have severe dental caries, but I doubt if transient bacteremia from this cause would have contributed to symptoms of this severity. She does have a plan for having dental extractions. She has chronic opioid dependence and we continued her MS Contin dose when she PATIENT'S NAME: KODI GREEN [facility] AGE: 61 Y [address] ROOM: [id number] [place] [id number] LOCATION: GPCU ADMIT DATE: 06/08/2016 Discharge Summary DISCHARGE DATE: 06/12/2016 FAMILY PHYSICIAN: Physician, Unknown ATTENDING PHYSICIAN: Barbie Brice was able to tolerate it. She also complains of insomnia here and was unaware that she had mirtazapine on her home med list, but she said this has been effective for insomnia since she got it while she was in the hospital. I will not give her another prescription for it, she says she has a supply at home. Smoking cessation encouraged. The patient and her agree with the discharge plan. INSTRUCTIONS AT DISCHARGE: Diet: Cardiac and remain well hydrated. Continue with foods high in potassium. Activity: Walk 15 minutes in the morning and in the evening. Follow up with her PCP within a week. Follow up with Dr. Epifanio Dodd, Cardiology, within a week. MEDICATIONS AT DISCHARGE: 1. Atorvastatin 80 mg p.o. q.h.s. 2. Neurontin 400 mg two capsules b.i.d. 3. Aspirin 81 mg p.o. daily. 4. MS Contin 60 mg p.o. daily. 5. Nicoderm patch 21 mg transdermal daily with instructions to do that for 7 days and reduce to 40 mg in 1 week. A prescription has been given from the PCP. 6. Potassium chloride ER tablet 20 mEq, she should take 1 t.i.d. 7. Ranexa 500 mg 1 p.o. b.i.d. 8. Altace 2.5 mg p.o. daily. 9. Florastor 250 mg p.o. b.i.d. 10. She is on vitamin D at home 50,000 units to be taken on Monday. I wanted her to know she should have a level after 12 weeks on this therapy and stop if her level is adequate and switch to a D3 supplement. 11. Tylenol as needed. 12. Mirtazapine 3.75 to 7.5 mg p.o. q.h.s. p.r.n. insomnia. 13. Clonidine 0.1 mg p.o. daily for anxiety. 14. Progesterone 400 mg at h.s. 15. P.r.n. Zofran. 16. P.r.n. Salonpas patch every 8 hours p.r.n. pain. 17. Nitroglycerin 0.4 mg sublingual p.r.n. chest pain. 18. Colace b.i.d. p.r.n. constipation. 19. Lasix 20 mg p.o. daily. I am instructing her to take this p.r.n. now due to her acute kidney injury and presenting with dehydration, and she is instructed to take it only if her weight is up 3 pounds over two days or if there is severe swelling. 20. She is instructed to stop the Levaquin she had started on 06/06/2016 PATIENT'S NAME: KODI GREEN [facility] AGE: 61 Y [address] ROOM: [place] [address] [facility] ADMIT DATE: 06/08/2016 Discharge Summary DISCHARGE DATE: 06/12/2016 FAMILY PHYSICIAN: Physician, Unknown ATTENDING PHYSICIAN: Barbie Brice prior to admission. 21. Symbicort 160/4.5 two puffs b.i.d. CONDITION AT DISCHARGE: Good. I spent greater than 30 minutes on this discharge. JAVI VAUGHAN MD LM/katherin /[id number] d: 06/13/16 0434 t: 06/21/16 0855, DISCHARGE SUMMARY
--- NOTE | ~2016-06-08 | HP ---
PATIENT'S NAME: KODI GREEN [facility] AGE: 61 Y [address] ROOM: [place] [address] LOCATION: GICU ADMIT DATE: 06/08/2016 History & Physical DISCHARGE DATE: FAMILY PHYSICIAN: PHYSICIAN, UNKNOWN ATTENDING PHYSICIAN: CRUZITO ESPITIA DATE OF SERVICE: CHIEF COMPLAINT: Dizziness. HISTORY OF PRESENT ILLNESS: A 61-year-old lady with a past medical history of heart failure with preserved ejection fraction and diastolic dysfunction; coronary artery disease, status post cardiac stenting in 2015 and 2013; chronic pain, on heavy morphine doses; tobaccoism; distant history of DVT; who was recently here at [facility] under our service, discharged after a bout of community-acquired pneumonia as well as heart failure exacerbation, was at Cardiology's office today where her blood pressure was noted to be in the 60s and in the 70s and then she was sent to the emergency department at the outside facility where she did receive 3 L of normal saline fluid with mild improvement in blood pressure and was started on vasopressor and transferred here for further medical care. On my encounter, she is comfortable, alert, and oriented into x3. She complained of mild dizziness, but other than that, she is denying any headache, any trouble with the eyes, any trouble swallowing, any chest pain, any palpitation, any shortness of breath, any abdominal pain, any constipation, any diarrhea, any PND or dyspnea. REVIEW OF SYSTEMS: All other systems were reviewed and were negative except for what is mentioned in the HPI. PAST MEDICAL HISTORY: Coronary artery disease, status post cardiac stenting in 2015 and 2013; chronic pain, on heavy doses of narcotics; tobaccoism; anxiety; distant history of DVT; fibromyalgia; chronic hypomagnesemia; degenerative disc disease; migraines; and peptic ulcer disease. PAST SURGICAL HISTORY: Significant for appendectomy, bladder repair, cholecystectomy, hysterectomy, inguinal hernia repair, lumpectomy, and multiple spinal surgeries. CURRENT MEDICATIONS: Being reconciled right now. PATIENT'S NAME: KODI GREEN [facility] AGE: 61 Y [address] ROOM: [place] [address] LOCATION: GICU ADMIT DATE: 06/08/2016 History & Physical DISCHARGE DATE: FAMILY PHYSICIAN: PHYSICIAN, UNKNOWN ATTENDING PHYSICIAN: CRUZITO ESPITIA SOCIAL HISTORY: Significant for longstanding tobacco use. Currently, smokes one pack per day. FAMILY HISTORY: Negative for any strokes or heart disease in the family. PHYSICAL EXAMINATION: VITAL SIGNS: Most recent blood pressure was 136/76, on vasopressors; heart rate 60s; respiratory rate of 14; saturating 96% on 2 L of oxygen. GENERAL: No acute distress. Alert and oriented x3. HEENT: Head, atraumatic, normocephalic. Eyes, nonicteric. No pallor. Oropharynx, dry mucous membranes. CARDIOVASCULAR: S1 and S2. No murmurs, gallops, or rubs. LUNGS: Bilateral bibasilar crackles noted. EXTREMITIES: No clubbing, cyanosis, or edema. ABDOMEN: Soft, nontender, nondistended. Bowel sounds are present. PSYCHIATRIC: Normal affect, mood, and speech. NEUROLOGIC: Cranial nerves 2 through 12 are intact. No motor or sensory deficits. LABORATORY WORK: Lab work from outside facility was impressive for a creatinine of 2.6 and BUN of 43 on the CMP. White count was elevated for 13. Lactic acid level was 1.5. Troponin one set was negative. ASSESSMENT: 1. Shock, unclear etiology, undifferentiated at this point. Likely causes could include hypovolemia versus sepsis. Sepsis is less likely as she does not have any defining symptoms at this point and is afebrile. 2. Chronic opioid dependence. 3. History of coronary artery disease. 4. Acute kidney injury related to hypotension at this point. 5. Degenerative disc disease. 6. Fibromyalgia. 7. Anxiety. PLAN: We have admitted this patient to the ICU. She has aggressively been volume resuscitated with 3 L of normal saline already, and she is on a little dose of Levophed at this point. Initially, we are going to follow sepsis order set at this point and get the urine cultures, blood cultures, sputum cultures, and a chest x-ray. Further management will depend on how she progresses in the hospital. We will get an intensive care consult. On last admission, her echocardiography was done, which did show grade 2 diastolic dysfunction, and we will consult Cardiology to help manage with this. We are going to repeat PATIENT'S NAME: KODI GREEN [facility] AGE: 61 Y [address] ROOM: [address] [address] LOCATION: [facility] ADMIT DATE: 06/08/2016 History & Physical DISCHARGE DATE: FAMILY PHYSICIAN: PHYSICIAN, UNKNOWN ATTENDING PHYSICIAN: CRUZITO ESPITIA all the labs to see any improvement in her labs in terms of kidney function as well as CBC. I's and O's will be monitored. DVT prophylaxis with heparin. Low-sodium diet. MD PRATIMA AWAN/katherin /[id number] D: 018 T: 906 HISTORY & PHYSICAL
--- NOTE | ~2016-06-08 | CON ---
PATIENT'S NAME: KODI GREEN [facility] AGE: 61 Y [address] ROOM: [place] [address] LOCATION: [facility] ADMIT DATE: 06/08/2016 Consultation DISCHARGE DATE: 06/12/2016 FAMILY PHYSICIAN: PHYSICIAN, UNKNOWN ATTENDING PHYSICIAN: CRUZITO BRICE REFERRING PHYSICIAN: Cruzito Brice MD PRIMARY CARE PHYSICIAN: Pete Mendez MD. REASON FOR CONSULT: Chest pain. HISTORY OF PRESENT ILLNESS: This is a 61-year-old female well known to Dr. Dodd with a history of coronary artery disease, is post PTCA and stenting of the LAD in 2010 and 2015. She in fact had an appointment with Dr. Dodd this past Monday, but when she presented to the clinic her blood pressures were extremely low and she was taken to the emergency room and was found to have sepsis, hypotension, and elevated creatinine. She was recently hospitalized with community-acquired pneumonia and hypoxic respiratory failure. She went home to follow up with Dr. Dodd in 2 weeks and now is back in the hospital. She currently complains of chest discomfort describing it as a "hurt" with some discomfort in her arms. This pain seems to be worse on palpation and somewhat with deep breathing. She denies exertional chest pain or shortness of breath. No orthopnea, PND, or peripheral edema. She was complaining of dizziness when she was in the clinic on Monday, but at that time her blood pressures were extremely low, she states the dizziness has gone. She does have some mild shortness of breath. Her cardiac enzymes have all been normal and there have been no EKG changes. PAST MEDICAL HISTORY: 1. Coronary artery disease. 2. Dyslipidemia. 3. Hypertension. 4. High-risk medications-Ranexa. 5. High-dose opioid use. 6. Statin intolerance. 7. Hypertension. 8. Hyperlipidemia. 9. Fibromyalgia. 10. Lumbosacral disc disease. 11. Chronic tobacco abuse. 12. Depression. 13. Remote history of deep venous thrombosis. 14. History of colitis. PATIENT'S NAME: KODI GREEN [facility] AGE: 61 Y [address] ROOM: [place] [address] LOCATION: [facility] ADMIT DATE: 06/08/2016 Consultation DISCHARGE DATE: 06/12/2016 FAMILY PHYSICIAN: PHYSICIAN, UNKNOWN ATTENDING PHYSICIAN: CRUZITO BRICE. History of mild pulmonary hypertension. PAST SURGICAL HISTORY: 1. Bilateral herniorrhaphy. 2. x2. 3. Total abdominal hysterectomy with bilateral salpingo-oophorectomy. 4. Exploratory laparotomy. 5. Cholecystectomy. 6. Bladder sling. 7. Back surgeries. 8. Left heart catheterization 1998, showing nonobstructive disease. 9. Left heart catheterization 2008, with stenting of the LAD with bare metal stent. 10. Left heart catheterization 2012, Dr. Ayoub, no intervention noted. 11. Left heart catheterization 2015, with patent stent noted to the mid LAD. ALLERGIES: TO PENICILLIN CAUSING A RASH. CODEINE CAUSING SORT OF PASSED OUT. CURRENT MEDICATIONS: 1. Acetaminophen 1000 mg every 8 hours. 2. Albuterol 6.7 HFA two puffs every 6 hours. 3. Aspirin 81 mg every h.s. 4. Atorvastatin 80 mg every h.s. 5. Symbicort 160/4.5, two puffs b.i.d. 6. Clonidine 0.1 mg p.o. every day. 7. Colace 100 mg b.i.d. 8. Furosemide 20 mg p.o. every day. 9. Gabapentin 800 mg b.i.d. 10. Levothyroxine 750 mcg x3 days. 11. Salonpas patch transdermally every 8 hours. 12. Mirtazapine 7.5 mg tablet p.r.n., 1/2 at bedtime. 13. Morphine 60 mg b.i.d. 14. Nitroglycerin 0.4 mg sublingual. 15. Ondansetron 8 mg b.i.d. p.r.n. 16. Potassium chloride 20 mEq every day. 17. Progesterone 400 mg every h.s. 18. Ramipril 2.5 mg every day. 19. Ranexa 500 mg b.i.d. 20. Venlafaxine 150 mg daily. 21. Drisdol 86808 units p.o. every seven days, on Fridays. SOCIAL HISTORY: She is . She has two children. She smokes a pack of cigarettes a day and has done so for over 45 years. PATIENT'S NAME: KODI GREEN [facility] AGE: 61 Y [address] ROOM: [address] [place] [address] LOCATION: [facility] ADMIT DATE: 06/08/2016 Consultation DISCHARGE DATE: 06/12/2016 FAMILY PHYSICIAN: PHYSICIAN, UNKNOWN ATTENDING PHYSICIAN: CRUZITO BRICE FAMILY HISTORY: Mother has dyslipidemia, diabetes mellitus, and dementia. Father had CABG at the age of 69, esophageal cancer. Maternal grandmother had four myocardial infarctions and at the age of 70. She has a brother with an elevated cholesterol, a sister with lupus, and another sister with diabetes mellitus. REVIEW OF SYSTEMS: GENERAL: She has been very depressed lately, complaining of lot of pain. HEAD: She has complaints of migraines. EYES: She wears corrective lenses. EARS: No problems with hearing. NOSE: No epistaxis or rhinorrhea. MOUTH: No gingival bleeding. THROAT: Denies sore throat, hoarseness, or difficulty swallowing. PULMONARY: No cough. She had a recent pneumonia. GI: Negative for nausea, vomiting, or diarrhea. No melena or hematochezia. : Positive for urgency. MUSCULOSKELETAL: She has chronic back pain with a history of lumbar back surgery. NEUROLOGIC: She complains of some neuropathy as well. She complains of the history of fibromyalgia. PHYSICAL EXAMINATION: VITAL SIGNS: Her weight is 176. She is 5 feet 8 inches. Blood pressure initially on admission 77/42, today is 121/53. GENERAL: She is alert, but complains of lot of pain. HEENT: Head is normocephalic. Pupils equal, round, and react briskly. NECK: Soft and supple. No lymphadenopathy. No thyromegaly. JVD is flat. LUNGS: Lungs sounds were clear. CV: Regular with a normal S1 and S2. ABDOMEN: Soft. Bowel sounds are present. CHEST: Tender on palpation. EXTREMITIES: Show no peripheral edema. LABORATORY DATA: Hemoglobin today is 8.8; her white count today is 10.8, it was 19.5; magnesium 1.5; BUN 11, creatinine 0.9. Sodium 147, potassium is 2.7, lipase is 471. She has a repeat echocardiogram done today which was reported as normal per Dr. Dodd. ASSESSMENT: 1. Atypical chest pain. We will check an amylase as well as liver function test. Given the fact that her lipase is a little bit elevated. I doubt PATIENT'S NAME: KODI GREEN [facility] AGE: 61 Y [address] ROOM: [id number] [place], [place] [address] LOCATION: [facility] ADMIT DATE: 06/08/2016 Consultation DISCHARGE DATE: 06/12/2016 FAMILY PHYSICIAN: PHYSICIAN, UNKNOWN ATTENDING PHYSICIAN: CRUZITO BRICE that it is related to cardiac. We will continue to monitor her telemetry. 2. Hypotension. She is currently on antibiotic therapy. We will continue to monitor for now. 3. Hypokalemia. We will replace her potassium as well as her magnesium. The assessment and plan, history of present illness, and physical exam are per Dr. Jannet Dodd. We would like to thank Dr. Brice for allowing us to participate in her care. ALVARO SEVILLA APRN FOR MD ROBBIE TREVINOP/josel /[id number] d: 06/10/16 1621 t: 06/28/16 0817, CONSULTATION REPORT
--- NOTE | ~2016-06-08 | ECHO ---
Transthoracic Echocardiography Report (TTE) Demographics Patient Name KODI GREEN Date of Study 06/09/2016 Patient Number [id number] Visit Number [id number] Date of 1955 Room Number G6202 Gender Female Number Age 61 year(s) Referring Yuniel Avery Plant Controls Specialist Martha Lubin Physician MD Bernadette Olivier [facility], Satnam Arizmendi MD RVT Physician Interpreting Yousif Freeman MD Pot Room Supervisor Physician Supervising Ordering Satnam Arizmendi MD, MD/MLP Physician Nurse Stress Custom Miller Conclusions Contractility Score Summary Normal Left Ventricular contractility was noted. Summary The estimated left ventricular ejection fraction is 60%. The left ventricle is normal in size . Mild concentric left ventricular hypertrophy. Diastolic assessment reveals Grade I diastolic dysfunction. Mildly dilated right ventricle. No significant valvular abnormalities. Procedure Type of Study TTE procedure:2D Echocardiogram, M-Mode, Doppler , Color Doppler. Procedure Date Date: 06/09/2016 Start: 12:49 PM Study Location: Inpatient Portable Technical Quality: Adequate visualization Indications:Abnormal ECG. Appropriate Use Criteria: 9 Patient Status: Routine HR: 71 bpm BP: 122/58 mmHg Allergies - Codiene. - Penicillin. M-Mode/2D Measurements LV Diastolic Dimension: 4.09 cm LV Systolic Dimension: 2.46 cm LV Septum Diastolic: 1.2 cm LV PW Diastolic: 1.17 cm AO Root Dimension: 2.9 cm Cardiac Output: 3.67 l/min AV Cusp Separation: 1.8 cm RV Diastolic Dimension: 3.14 cm LA volume: 42 ml LVOT: 1.8 cm RV Base: 4.17 cm LVOT VTI: 20.3 cm RV Mid: 3.7 cm LV Stroke volume: 51.63 ml TAPSE: 2.39 cm TDI-S': 22.4 cm/s Doppler Measurements MV Peak E-Wave: 0.97 m/s LVOT Peak Velocity: 1.21 m/s MV Peak A-Wave: 1.16 m/s MV E/A Ratio: 0.84 TR Velocity:2.29 m/s MV P1/2t: 86 msec TR Gradient:20.98 mmHg Estimated RAP:3 mmHg MV Deceleration Time: 239 msec E' Septal Velocity: 0.06 m/s PV Peak Velocity: 1.26 m/s E' Lateral Velocity: 0.06 m/s PV Peak Gradient: 6.35 mmHg Estimated PASP: 23.98 mmHg A' Lateral Velocity: 0.1 m/s Findings Left Ventricle The left ventricle is normal in size . Mild concentric left ventricular hypertrophy. Diastolic assessment reveals Grade I diastolic dysfunction. Mild anterior wall hypokinesis Right Ventricle Normal right ventricle structure and function. Left Atrium Normal left atrial size. Right Atrium Normal right atrial size. IVC measures 1.44 cm with inspiratory collapse. Mitral Valve Normal mitral valve structure and function. Trivial mitral regurgitation by color Doppler. Aortic Valve Normal aortic valve structure and function. Tricuspid Valve Normal tricuspid valve structure and function. Trivial tricuspid regurgitation by color Doppler. Pulmonic Valve Normal pulmonic valve structure and function. Pericardial Effusion No evidence of pericardial effusion. Miscellaneous Visualized portions of the aortic root and ascending aorta appear normal in size. Pleural Effusion No evidence of pleural effusion. Contractility Score LV regional wall motion:(0-Non visualized 1-Normal 2-Hypokinesis 3-Akinesis 4-Dyskinesis 5-Aneurysm) Signature dtt: Pete Dodd (cardio) dtd: 06/09/16 1249 Physician Self Edit
[~2016-06-08 14:00] MED LIST changes: +ACETAMINOPHEN500 M1 PO; +AMBIEN5 MG PO; +CLONIDINE HCL0.1 MG PO; +COLACE100 MG PO; +K-TAB ER20 MEQ PO; +LASIX20 MG PO; +LEVAQUIN750 MG PO; +MIRTAZAPINE7.5 MG PO; +NITROSTAT0.4 MG SL; +ONDANSETRON ODT8 MG PO; +PROGESTERONE200 MG PO; +PROVENTIL OR V6.7 GM INH; +RANEXA ER500 MG PO; +SALONPAS PATCH1 EAC1 TRANS; +SYMBICORT 16010.2 GM INH
--- NOTE | 2016-06-08 17:37 | NUR ---
Admit to ICU for hypotension, sepsis protocol initiated. Alert and oriented x3, denies pain or N/T. Sinus rhythm, hypotensive. Levophed gtt. 2L N/C with lungs clear and dim. Bowel sounds active. Myles patent with yellow UOP. Peripheral IV x2.
[2016-06-08] MEDS ORDERED: NEURONTIN400 MG PO (17:48)
[2016-06-08] MEDS ORDERED: LIPITOR80 MG PO (17:49)
[2016-06-08] MEDS ORDERED: VENLAFAXINE HC150 MG PO (17:49)
[2016-06-08] MEDS ORDERED: DRISDOL 5050000 UNIT PO (17:49)
[2016-06-08 18:11] LABS: BICARBONATE 15.7 mmol/L (18.0-23.0)
[2016-06-08 18:16] LABS: LACTATE 0.5 mEq/L (0.50-1.60); PCO2 43 mmHg (35-45); PO2 103 mmHg (80-90)
[2016-06-08 18:53] LABS: PROTIME 10.3 SECONDS (9.6-11.1); PTT 19 SECONDS (25-32)
[2016-06-08 18:58] LABS: HEMATOCRIT 35.8 % (33.0-46.0); HEMOGLOBIN 11.1 g/dL (10.0-15.0); MCH 32.2 pg (27.0-34.0); MCV 103.8 fl (83.0-98.0); MPV 10.3 fl (9.4-12.4); PLATELET COUNT 411 K/uL (150-450); RBC 3.45 M/uL (3.50-5.50); RDW-CV 14.2 % (11.9-14.6); WBC 19.5 K/uL (4.0-11.0)
[2016-06-08 19:15] LABS: BILIRUBIN URINE NEGATIVE (NEGATIVE); BLOOD URINE NEGATIVE /UL (NEGATIVE); COLOR URINE YELLOW (YELLOW); GLUCOSE URINE NEGATIVE (NEGATIVE); KETONE URINE NEGATIVE (NEGATIVE); LEUKOCYTES URINE 25 /UL (NEGATIVE); NITRITE URINE NEGATIVE (NEGATIVE); PROTEIN URINE 15 mg/dL (NEGATIVE); SPEC GRAVITY URINE 1.015 (1.003-1.035); TURBIDITY URINE CLEAR (CLEAR); UROBILINOGEN URINE NORMAL (NORMAL)
[2016-06-08 19:21] LABS: ALBUMIN 2.9 gm/dL (3.5-5.0); CALCIUM 7.5 mg/dL (8.5-10.5); TOTAL PROTEIN 5.5 g/dL (6.0-8.4)
[2016-06-08 19:23] LABS: TOTAL BILIRUBIN 0.3 mg/dL (0.0-1.5)
[2016-06-08 19:45] LABS: BACTERIA URINE FEW (NEGATIVE); EPITHELIAL URINE 0-2 #/HPF (NEGATIVE); RBC URINE NEGATIVE #/HPF (NEGATIVE); RENAL EPITH URINE 0-2 #/HPF (NEGATIVE); WBC URINE 0-2 #/HPF (NEGATIVE)
[2016-06-08 19:50] LABS: AMPHETAMINE NEGATIVE (NEGATIVE); BARBITURATE NEGATIVE (NEGATIVE); COCAINE NEGATIVE (NEGATIVE); OPIATES POSITIVE (NEGATIVE)
[2016-06-08 19:51] LABS: ABSOLUTE NEUTROPHIL CT (ANC) 13.9 K/uL (1.8-7.8); BANDED NEUTROPHIL # 0.8 K/uL (0.0-0.1); BANDED NEUTROPHILS % 4 %; LYMPHOCYTE # 3.9 K/uL (0.8-4.0); LYMPHOCYTE % 20 %; SEGMENTED NEUTROPHIL # 13.1 K/uL (1.8-7.8); SEGMENTED NEUTROPHIL % 67 %
[2016-06-08 20:58] LABS: BICARBONATE 16.8 mmol/L (18.0-23.0); PCO2 44 mmHg (35-45); PO2 95 mmHg (80-90)
[2016-06-08 21:00] LABS: BICARBONATE 17.8 mmol/L (18.0-23.0); PCO2 50 mmHg (35-45)
[2016-06-08 21:04] LABS: PO2 37 mmHg (80-90)
[2016-06-08 23:00] LABS: PCO2 41 mmHg (35-45); PO2 69 mmHg (80-90)
[2016-06-09 01:29] LABS: CALCIUM 7.9 mg/dL (8.5-10.5); CREATININE 1.6 mg/dL (0.5-1.1); POTASSIUM 3.4 mMol/L (3.7-5.1)
[2016-06-09 01:31] LABS: ANION GAP 16.4 (10.0-19.0)
--- NOTE | 2016-06-09 04:41 | NUR ---
Significant Event: Neurologically intact. Levo at 0.02 mcg/kg/min. 2L NC. Clear and dim. Active bowel sounds. No BM. Herrmann drained 2045 ml clear yellow urine. D5 with bicarb running at 125 ml/hr. Denies pain. Follow up: Wean Levo
[2016-06-09 04:46] LABS: ALBUMIN 2.8 gm/dL (3.5-5.0); ANION GAP 14.5 (10.0-19.0); CALCIUM 7.6 mg/dL (8.5-10.5); CREATININE 1.4 mg/dL (0.5-1.1); POTASSIUM 3.5 mMol/L (3.7-5.1)
[2016-06-09 04:50] LABS: HEMATOCRIT 30.1 % (33.0-46.0); HEMOGLOBIN 9.5 g/dL (10.0-15.0); MCH 32.5 pg (27.0-34.0); MCHC 31.6 gm/dL (32.0-36.5); MCV 103.1 fl (83.0-98.0); MPV 10.5 fl (9.4-12.4); RBC 2.92 M/uL (3.50-5.50); RDW-CV 13.9 % (11.9-14.6); WBC 8.9 K/uL (4.0-11.0)
[2016-06-09 04:53] LABS: PLATELET COUNT 279 K/uL (150-450)
[2016-06-09 05:17] LABS: ABSOLUTE NEUTROPHIL CT (ANC) 7.7 K/uL (1.8-7.8); BANDED NEUTROPHIL # 0.8 K/uL (0.0-0.1); BANDED NEUTROPHILS % 9 %; LYMPHOCYTE # 0.8 K/uL (0.8-4.0); LYMPHOCYTE % 9 %; MONOCYTE # 0.3 K/uL (0.0-1.0); SEGMENTED NEUTROPHIL # 6.9 K/uL (1.8-7.8); SEGMENTED NEUTROPHIL % 78 %
[2016-06-09 09:18] LABS: CPK 41 IU/L (21-215); MAGNESIUM 1.9 mg/dL (1.3-2.6)
[2016-06-09 10:09] LABS: PCO2 37 mmHg (35-45)
[2016-06-09 10:12] LABS: BICARBONATE 22.4 mmol/L (18.0-23.0); PO2 86 mmHg (80-90)
--- NOTE | 2016-06-09 15:30 | NUR ---
Introduced self and role of care management to patient and her . Patient lives with spouse near [place]. She says she did OK at home until yesterday when she went to her Dr. forde and was dizzy. Their daughter was helping as needed at home. She plans home when ready for discharge. Says she is going to stay longer this time and not go home to soon. Will follow.
--- NOTE | 2016-06-09 16:55 | NUR ---
Significant Event: Patient alert and oriented x3. Levo gtt off now, SBP 120's. Patient has reported L) shoulder/arm pain and chest pain throughout shift. Abruptly became nauseous and vomitted this morning. notified. SERGIO Dodd consulted, still has not been up to see patient. O2 started, aspirin and morphine given. EKG, CXR received. Cardiac enzymes drawn. Myles patent and draining light yellow urine. Generalized bruising noted. Scheduled MS contin given for pain, patient did vomit up meds. Tylenol given for pain. IV to L) AC, saline locked. L) subclavian central line, triple lumen- infusing D5 with bicarb at 75 mL/hr, zosyn currently running. Follow up: Low sodium diet. AC/HS accucheks.Need sputum culture still.
[2016-06-09 17:05] LABS: CPK 36 IU/L (21-215)
[2016-06-09 20:01] LABS: CPK 42 IU/L (21-215)
--- NOTE | 2016-06-10 04:36 | NUR ---
Significant Event: Neurologically intact. VSS. RA. Pain to L) shoulder and back. Remeron 7.5 mg given x1 for insomnia. Follow up: Change status
[2016-06-10 05:08] LABS: ALBUMIN 2.6 gm/dL (3.5-5.0); ALK PHOS 88 IU/L (33-138); ALT 15 IU/L (12-78); AST 20 IU/L (10-40); CALCIUM 7.7 mg/dL (8.5-10.5); CHLORIDE 111 mMol/L (96-110); CO2 28 mMol/L (22-32); CPK 60 IU/L (21-215); CREATININE 0.9 mg/dL (0.5-1.1); MAGNESIUM 1.5 mg/dL (1.3-2.6); TOTAL BILIRUBIN 0.3 mg/dL (0.0-1.5); TOTAL PROTEIN 5.1 g/dL (6.0-8.4)
[2016-06-10 05:15] LABS: ANION GAP 10.7 (10.0-19.0); BLOOD UREA NITROGEN 11 mg/dL (6-24); ESTIMATED GFR (MDRD EQUATION) > 60; PHOSPHORUS 1.3 mg/dL (2.5-4.9); POTASSIUM 2.7 mMol/L (3.7-5.1); SODIUM 147 mMol/L (135-145)
[2016-06-10 05:46] LABS: BASOPHIL % 0.2 %; EOSINOPHIL # 0.1 K/uL (0.0-0.5); EOSINOPHIL % 1.1 %; HEMATOCRIT 27.6 % (33.0-46.0); HEMOGLOBIN 8.8 g/dL (10.0-15.0); IMMATURE GRANULOCYTE # 0.2 K/uL (0.0-0.3); IMMATURE GRANULOCYTE % 1.7 %; LYMPHOCYTE # 2.1 K/uL (0.8-4.0); LYMPHOCYTE % 19.6 %; MCH 31.7 pg (27.0-34.0); MCHC 31.9 gm/dL (32.0-36.5); MCV 99.3 fl (83.0-98.0); MONOCYTE # 0.6 K/uL (0.0-1.0); MONOCYTE % 5.7 %; MPV 10.8 fl (9.4-12.4); NEUTROPHIL # (ANC) 7.8 K/uL (1.8-7.8); NEUTROPHIL % 71.7 %; NRBC % 0 /100WBC (0-0.00); PLATELET COUNT 312 K/uL (150-450); RBC 2.78 M/uL (3.50-5.50); RDW-CV 13.7 % (11.9-14.6); WBC 10.8 K/uL (4.0-11.0)
--- NOTE | 2016-06-10 12:30 | NUR ---
Significant Event: PT ALERT AND ORIENTED X3. NEURO CHECKS INTACT. PT HAD A ROUGH MORNING DUE TO NOT MUCH SLEEP LAST NIGHT. STATES THAT SHE "HAD A TERRIBLE NIGHT." HAS FELT BETTER THROUGHOUT THE SHIFT AND HAS BECOME MORE PLEASANT/COOPERATIVE. VITAL SIGNS STABLE. ORDER TO KEEP MAP >65. GENERALIZED EDEMA. ON ROOM AIR. MARTEL PATENT, DRAINING YELLOW URINE. PT HAS HAD 3 LARGE INCONTINENT LOOSE BM'S TODAY-WEARING A DEPEND. ORDER TO HEMATEST STOOLS X3-STILL NEED 3 SAMPLES. GENERALIZED BRUISING. ARTERIAL LINE D/C'D THIS AM. IV TO L)AC SALINE LOCKED. L)TRIPLE LUMEN SUBCLAVIAN INTACT; IV FLUIDS INFUSING WITHOUT COMPLICATIONS. INTERMITTENT ANTIBIOTICS. K+ LEVEL WAS 2.7 AND PHOSPHORUS WAS 1.3 THIS AM; PO POTASSIUM, 2 GRAMS IV MAGNESIUM, AND IV POTASSIUM PHOSPHATE GIVEN X1. BAG BATH GIVEN THIS AM. AC/HS ACCUCHECKS. PT'S SCHEDULED HOME DOSE OF MS CONTIN ORDERED TODAY; HAS BEEN HELPING WITH GENERALIZED PAIN. PRN TYLENOL GIVEN THIS AM. ABDOMINAL ULTRASOUND ORDERED DUE TO PAIN. TAKES MEDICATIONS WHOLE WITH WATER. HAS BEEN AT BEDSIDE OFF AND ON THROUGHOUT THE SHIFT. PT IS PCU STATUS. Follow up: CONTINUE TO MONITOR; PENDING TRANSFER TO PCU WHEN A BED IS AVAILABLE.
[2016-06-11 03:25] LABS: ALBUMIN 2.5 gm/dL (3.5-5.0); BLOOD UREA NITROGEN 6 mg/dL (6-24); CALCIUM 7.7 mg/dL (8.5-10.5); CHLORIDE 113 mMol/L (96-110); CO2 25 mMol/L (22-32); CREATININE 0.8 mg/dL (0.5-1.1); ESTIMATED GFR (MDRD EQUATION) > 60; MAGNESIUM 1.9 mg/dL (1.3-2.6); PHOSPHORUS 2.3 mg/dL (2.5-4.9); SODIUM 148 mMol/L (135-145)
[2016-06-11 03:27] LABS: BASOPHIL % 0.2 %; EOSINOPHIL # 0.2 K/uL (0.0-0.5); HEMOGLOBIN 8.7 g/dL (10.0-15.0); IMMATURE GRANULOCYTE # 0.1 K/uL (0.0-0.3); IMMATURE GRANULOCYTE % 0.9 %; LYMPHOCYTE # 3.5 K/uL (0.8-4.0); LYMPHOCYTE % 32.2 %; MCH 32.3 pg (27.0-34.0); MCHC 32.2 gm/dL (32.0-36.5); MCV 100.4 fl (83.0-98.0); MONOCYTE # 0.7 K/uL (0.0-1.0); MONOCYTE % 6.9 %; MPV 10.5 fl (9.4-12.4); NEUTROPHIL # (ANC) 6.2 K/uL (1.8-7.8); NEUTROPHIL % 57.8 %; NRBC % 0 /100WBC (0-0.00); PLATELET COUNT 312 K/uL (150-450); RBC 2.69 M/uL (3.50-5.50); RDW-CV 13.9 % (11.9-14.6); WBC 10.7 K/uL (4.0-11.0)
--- NOTE | 2016-06-11 04:28 | NUR ---
Significant Event: Patient is A/O x3. 1A. VSS on RA. Temperature of 99.0 last PM, gave tylenol. Afebrile since then. SBP's 110-119, HR's in 70's. Potassium Chloride running at 50 ml/hr. L) antecubital IV SL. L) subclavian central line patent. Myles D/C at 0315. No void since then. No complaints of pain or numbness or tingling. Follow up: Needs hematest x3.
--- NOTE | 2016-06-11 16:56 | NUR ---
Significant Event: a/o x 3. chronic pain to back. resolved with scheduled morphine. denies numbness/tingling. room air. ambulates in room with SBA. Takes meds whole. Regular diet. subclavian to left chest and peripheral IV to left anticubital with D5 1/2 NS with 20meq of potassium at 50 ml/hr. accuchecks ac/hs. states would like to go to home today. waiting for Dr. Hay to round.
[2016-06-11 19:58] LABS: ANION GAP 15.6 (10.0-19.0); BLOOD UREA NITROGEN 4 mg/dL (6-24); CALCIUM 8.2 mg/dL (8.5-10.5); CHLORIDE 112 mMol/L (96-110); CO2 22 mMol/L (22-32); CREATININE 0.8 mg/dL (0.5-1.1); ESTIMATED GFR (MDRD EQUATION) > 60; POTASSIUM 3.6 mMol/L (3.7-5.1)
[2016-06-11 19:59] LABS: SODIUM 146 mMol/L (135-145)
--- NOTE | 2016-06-12 04:17 | NUR ---
Significant Event: Patient is A/O x3. Ambulates SBA. VSS on RA. Compliants of chronic back pain. Treated with scheduled morphine and tylenol. Subclavian to L) chest running D5 1/2 NS with 40 meq potassium at 50 ml/hr. Peripheral IV to L) AC SL. Replaced magnesium and potassium PO. Accuchecks D/C'd today. Plan is home today. Follow-up: Plan is home today.
[2016-06-12 05:40] LABS: ANION GAP 11.6 (10.0-19.0); BLOOD UREA NITROGEN 4 mg/dL (6-24); CALCIUM 7.9 mg/dL (8.5-10.5); CHLORIDE 115 mMol/L (96-110); CO2 24 mMol/L (22-32); CREATININE 0.8 mg/dL (0.5-1.1); ESTIMATED GFR (MDRD EQUATION) > 60; POTASSIUM 3.6 mMol/L (3.7-5.1)
[2016-06-12 05:42] LABS: SODIUM 147 mMol/L (135-145)
[2016-06-12 05:49] LABS: BASOPHIL # 0.1 K/uL (0.0-0.2); BASOPHIL % 0.6 %; EOSINOPHIL # 0.2 K/uL (0.0-0.5); HEMATOCRIT 27.3 % (33.0-46.0); HEMOGLOBIN 8.6 g/dL (10.0-15.0); IMMATURE GRANULOCYTE % 0.4 %; LYMPHOCYTE # 3.1 K/uL (0.8-4.0); LYMPHOCYTE % 33.4 %; MCHC 31.5 gm/dL (32.0-36.5); MCV 101.5 fl (83.0-98.0); MONOCYTE # 0.7 K/uL (0.0-1.0); MONOCYTE % 7.1 %; MPV 10.4 fl (9.4-12.4); NEUTROPHIL # (ANC) 5.3 K/uL (1.8-7.8); NEUTROPHIL % 56.5 %; NRBC % 0 /100WBC (0-0.00); PLATELET COUNT 325 K/uL (150-450); RBC 2.69 M/uL (3.50-5.50); RDW-CV 13.9 % (11.9-14.6); WBC 9.3 K/uL (4.0-11.0)
[2016-06-12] MEDS ORDERED: NICODERM CQ1 EAC1 TRANS (17:29)
[2016-06-12] MEDS ORDERED: FLORASTOR250 MG PO (17:30)
[2016-06-12] MEDS ORDERED: FEOSOL325 MG PO (17:48)
--- NOTE | 2016-06-12 19:24 | NUR ---
Significant Event: a/o x 3. chronic pain to back. scheduled morphine with stated relief. afebrile. VSS. up ad keya in room. discharged to home. left subclavian discontinued per sterile technique. patient left PCU per w/c at 1840 accompanied by PHOTOGRAPHER MODEL. to be driven home per private vehicle by .
== END 2016-06-12 18:40 | disposition disaster alternative care site (69) | DRG 871 ==
LOC: GPCU 15:51 → GICU 15:51 → GPCU 06-10 17:36
PROVIDERS: Family Medicine; Internal Medicine; Internal Medicine Nephrology; ADMIT Internal Medicine
PROC: 02HV33Z Insertion of Infusion Device into Superior Vena Cava, Percutaneous Approach (ICD-10-PCS; principal; 2016-06-08)
PROC: 03HB33Z Insertion of Infusion Device into Right Radial Artery, Percutaneous Approach (ICD-10-PCS; 2016-06-08)
DX: R57.1 Hypovolemic shock (principal); R65.11 Systemic inflammatory response syndrome (SIRS) of non-infectious origin with acute organ dysfunction; N17.9 Acute kidney failure, unspecified; B37.89 Other sites of candidiasis; E87.4 Mixed disorder of acid-base balance; E87.0 Hyperosmolality and hypernatremia; I95.9 Hypotension, unspecified; F11.20 Opioid dependence, uncomplicated; I50.30 Unspecified diastolic (congestive) heart failure; D75.89 Other specified diseases of blood and blood-forming organs; I25.10 Atherosclerotic heart disease of native coronary artery without angina pectoris; E87.6 Hypokalemia; M79.7 Fibromyalgia; F41.9 Anxiety disorder, unspecified; F17.210 Nicotine dependence, cigarettes, uncomplicated; K02.9 Dental caries, unspecified; G47.00 Insomnia, unspecified; Z95.5 Presence of coronary angioplasty implant and graft; E83.42 Hypomagnesemia; Z86.718 Personal history of other venous thrombosis and embolism; Z79.899 Other long term (current) drug therapy; Z79.82 Long term (current) use of aspirin; G89.29 Other chronic pain; M54.5 Low back pain; R07.89 Other chest pain; F32.9 Major depressive disorder, single episode, unspecified; I25.2 Old myocardial infarction
CPT/HCPCS: G0480; J1644; J2020; J2270; J2405; J2543; J3370; J3475; J3480; J7040; J7050; J7060; J7120; P9047